=== PATIENT | female | born 1970 | race Caucasian/White ===

== ENCOUNTER 2019-11-17 16:52 | Emergency (ER) | payer OTHER, SELFPAY ==
[2019-11-17 17:05] VITALS: BP 123/64; PULSE 88; RESP 20; TEMP 37.1; O2SAT 98; BMI 42.9
[2019-11-17 17:52] LABS: Bacteria Urine None Seen
[2019-11-17 18:14] LABS: Amorphous Sediment Urine 1+; RBC Urine 0-1/HPF (0-5/HPF); Squamous Epithelial Cell Urine 1-5 /HPF (0-5/HPF); WBC Urine 1-5/HPF (0-5/HPF)
[2019-11-17 18:15] LABS: Culture Indicated Urine Cult Not Indicated; Mucus Urine 1+ (Negative)
[2019-11-17 18:32] LABS: Add Manual Diff / Slide Review NO; Basophils Absolute Auto 100 /uL (0-100); Basophils Percent Auto 0.7 % (0-2); Eosinophils Absolute Auto 100 /uL (0-450); Eosinophils Percent Auto 1.2 % (2-4); Hematocrit 40.8 % (36-46); Hemoglobin 13.5 g/dL (12.0-16.0); Lymphocytes Absolute Auto 1600 /uL (1100-4500); Lymphocytes Percent Auto 20.5 % (25-40); Mean Corpuscular HGB Conc 33.1 % (30-36); Mean Corpuscular Hemoglobin 26.6 PG (26-34); Mean Corpuscular Volume 80.5 fL (80-100); Monocytes Absolute Auto 500 /uL (0-900); Monocytes Percent Auto 6.7 % (3-14); Neutrophils Absolute Auto 5500 /uL (1500-7000); Neutrophils Percent Auto 70.9 % (50-75); Platelet Count 250 X10^3/uL (150-400); Red Blood Cell Count 5.07 X10^6/uL (4.0-5.2); Red Cell Distribution Width 15.2 % (11.6-14.8); White Blood Cell Count 7.8 X10^3/uL (4.5-11.0)
[2019-11-17 18:47] LABS: Alanine Aminotransferase 26 IU/L (<35); Albumin 4.3 g/dL (3.5-5.0); Albumin Globulin Ratio 1.1 (1.0-2.8); Alkaline Phosphatase 70 U/L (38-126); Aspartate Aminotransferase 27 IU/L (14-36); Bilirubin Total 0.4 mg/dL (0.2-1.3); Blood Urea Nitrogen 18 mg/dL (7-17); Calcium 9.6 mg/dL (8.4-10.2); Carbon Dioxide 25 mmol/L (22-32); Chloride 104 mmol/L (98-107); Estimated Glomerular Filt Rate > 60.0 mL/min (>60); Globulin 3.9 g/dL (1.7-4.1); Glucose 118 mg/dL (70-100); HEMOLYSIS < 15 (0-50); Potassium 4.2 mmol/L (3.4-5.1); Sodium 137 mmol/L (137-145); Total Protein 8.2 g/dL (6.3-8.2)
[2019-11-17] MEDS: KETOROLAC 60 MG/2 ML VIAL IM (19:27)
[2019-11-17] MEDS: LIDOCAINE PATCH 1 EACH ADH..PATCH TOP (19:27)
--- NOTE | 2019-11-17 19:31 | PC.NURSE ---
pt medicated as per mdo
[2019-11-17] MEDS: CYCLOBENZAPRINE 10 MG PREPACK 1 BOTTLE MISC (20:35)
[2019-11-17] MEDS: KETOROLAC 10MG PREPACK 1 BOTTLE MISC (20:35)
--- NOTE | 2019-11-17 20:35 | PC.NURSE ---
Pt reports her pain is much improved, down to 8/10 from 10/10. States her pain is tolerable now.
[2019-11-17 20:43] VITALS: BP 144/90; PULSE 77; RESP 20; O2SAT 100
--- NOTE | 2019-11-17 20:46 | ED_ITS ---
HPI - Female Genitourinary <SANTHOSH Valera - Last Filed: 11/17/19 20:52> General Chief complaint: Urogenital-Female Stated complaint: back pain right side, also L wrist gout issues Time Seen by Provider: 11/17/19 19:02 Source: patient Mode of arrival: Ambulatory Limitations: no limitations History of Present Illness HPI Narrative: The patient is a 49-year-old female current smoker who presents with a chief complaint of back pain that started several days ago. 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 She is concerned about a kidney infection in came in because the nurse triage line from her insurance center. She denies any dysuria urgency or frequency. She has not taken anything for the pain, states it is constant sometimes radiating around her abdomen. She states she does not like pain medicine. She states it is not feel like a kidney stone. No fevers nausea vomiting etcetera. The patient states that she has had this happen a few months ago, then it got better on her own after she broke out in a rash. No current rashes. Related Data Home Medications Medication Instructions Recorded Confirmed diazepam 5 mg PO PRN #0 08/06/10 drospirenone-ethinyl estradiol 1 tab PO QDAY #0 08/06/10 [SAVANNAH (28)] levothyroxine [Synthroid] 75 mcg NG QDAY #0 08/06/10 OMEPRAZOLE #0 04/27/12 Previous Rx's Medication Instructions Recorded cyclobenzaprine 10 mg PO TID PRN #20 tab 11/17/19 ketorolac 10 mg PO TID PRN #10 tab 11/17/19 lidocaine 1 patch TOP DAILY #15 each 11/17/19 Allergies Allergy/AdvReac Type Severity Reaction Status Date / Time From BUSPAR Allergy Unknown Uncoded 11/17/19 17:10 From DILAUDID Allergy Unknown Uncoded 11/17/19 17:10 From XANAX Allergy Unknown Uncoded 11/17/19 17:10 MORPHINE Allergy Unknown Uncoded 11/17/19 17:10 Review of Systems <SANTHOSH Valera - Last Filed: 11/17/19 20:52> Review of Systems Narrative: GENERAL: Denies chills, fatigue, malaise, fever, sweats. HEENT: Denies sinus pain, ear pain, sore throat, difficulty swallowing, dizziness. RESPIRATORY: Denies dyspnea, cough, wheezing, hemoptysis, sputum. CARDIOVASCULAR: Denies chest pain, palpitations, orthopnea, edema, GASTROINTESTINAL: See HPI : See HPI MUSCULOSKELETAL: See HPI SKIN: Denies rash, skin lesions, or other NEUROLOGIC: Denies weakness, headache, numbness, change in speech, confusion, seizures, incoordination. PSYCHIATRIC: No concerning psychosocial issues. 12 point review of systems is negative except for those stated above Patient History <SANTHOSH Valera - Last Filed: 11/17/19 20:52> Medical History (Updated 11/17/19 @ 20:48 by SANTHOSH Valera) History of kidney stones (Acute) tobacco type: cigarettes alcohol intake frequency: 0-2 drinks per day Substance Use Type: marijuana Exam <SANTHOSH Valera - Last Filed: 11/17/19 20:52> Narrative Exam Narrative: GENERAL: This is a well-nourished, well-developed patient, appears uncomfortable HEAD: Atraumatic. Normocephalic. No temporal or scalp tenderness. EYES: Pupils equal round and reactive. Extraocular motions intact. No scleral icterus. No injection or drainage. ENT: Nose without bleeding, purulent drainage or septal hematoma. Throat without erythema, tonsillar hypertrophy or exudate. Uvula midline. Airway patent. NECK: Trachea midline. No JVD or lymphadenopathy. Supple, nontender, no meningeal signs. CARDIOVASCULAR: Regular rate and rhythm RESPIRATORY: Clear to auscultation. Breath sounds equal bilaterally. No wheezes, rales, or rhonchi. No cough. No increased respiratory effort. No accessory muscle use. GASTROINTESTINAL: Abdomen soft, non-tender, nondistended. No hepato- splenomegaly, or palpable masses. No guarding. EXTREMITIES: No clubbing, cyanosis, or edema. No joint tenderness, effusion, or edema noted. BACK: No tenderness to CT or L midline palpation. Pain to right paraspinal muscle palpation of T-spine. Neuro: Alert and oriented, stable gait, using all extremities equally. Interactive. SKIN: No rash or erythema on visible skin or back. Initial Vital Signs Initial Vital Signs: Vital Signs Temperature 98.7 F 11/17/19 17:05 Pulse Rate 88 11/17/19 17:05 Respiratory Rate 20 11/17/19 17:05 Blood Pressure 123/64 11/17/19 17:05 Pulse Oximetry 98 11/17/19 17:05 <Phu Rain DO - Last Filed: 11/18/19 05:53> Initial Vital Signs Initial Vital Signs: Vital Signs Temperature 98.7 F 11/17/19 17:05 Pulse Rate 88 11/17/19 17:05 Respiratory Rate 20 11/17/19 17:05 Blood Pressure 123/64 11/17/19 17:05 Pulse Oximetry 98 11/17/19 17:05 Course <NOAH ValeraBC - Last Filed: 11/17/19 20:52> Orders Ordered: Discontinued Medications Cyclobenzaprine HCl (Flexeril 10 Mg Prepack) 1 bottle MISC SEEINSTR ONE Stop: 11/17/19 20:14 Last Admin: 11/17/19 20:35 Dose: 1 bottle Documented by: TERESA Ketorolac Tromethamine (Toradol) 60 mg IM NOW ONE Stop: 11/17/19 19:18 Last Admin: 11/17/19 19:27 Dose: 60 mg Documented by: CLAUDIA Ketorolac Tromethamine (Toradol 10mg Prepack) 1 bottle MISC SEEINSTR ONE Stop: 11/17/19 20:14 Last Admin: 11/17/19 20:35 Dose: 1 bottle Documented by: TERESA Lidocaine (Lidoderm) 1 each TOP NOW ONE Stop: 11/17/19 19:18 Last Admin: 11/17/19 19:27 Dose: 1 each Documented by: CLAUDIA Vital Signs Vital signs: Vital Signs - 8 hr 11/17/19 17:05 11/17/19 20:43 Temperature 98.7 F Pulse Rate 88 77 Respiratory Rate 20 20 Blood Pressure 123/64 144/90 H Pulse Oximetry 98 100 <Phu Rain DO - Last Filed: 11/18/19 05:53> Orders Ordered: Discontinued Medications Cyclobenzaprine HCl (Flexeril 10 Mg Prepack) 1 bottle MISC SEEINSTR ONE Stop: 11/17/19 20:14 Last Admin: 11/17/19 20:35 Dose: 1 bottle Documented by: KWOYSKI Ketorolac Tromethamine (Toradol) 60 mg IM NOW ONE Stop: 11/17/19 19:18 Last Admin: 11/17/19 19:27 Dose: 60 mg Documented by: CLAUDIA Ketorolac Tromethamine (Toradol 10mg Prepack) 1 bottle MISC SEEINSTR ONE Stop: 11/17/19 20:14 Last Admin: 11/17/19 20:35 Dose: 1 bottle Documented by: TERESA Lidocaine (Lidoderm) 1 each TOP NOW ONE Stop: 11/17/19 19:18 Last Admin: 11/17/19 19:27 Dose: 1 each Documented by: CLAUDIA Vital Signs Vital signs: Vital Signs - 8 hr 11/17/19 17:05 11/17/19 20:43 Temperature 98.7 F Pulse Rate 88 77 Respiratory Rate 20 20 Blood Pressure 123/64 144/90 H Pulse Oximetry 98 100 MDM - Female Genitourinary <ELVIRA Valera- - Last Filed: 11/17/19 20:52> Lab Data Attestation: I reviewed the patient's lab results. Result diagrams: 11/17/19 18:08 11/17/19 18:08 Labs: Lab Results 11/17/19 11/17/19 11/17/19 Range/Units 17:30 18:08 18:08 WBC 7.8 (4.5-11.0) X10^3/uL RBC 5.07 (4.0-5.2) X10^6/uL Hgb 13.5 (12.0-16.0) g/dL Hct 40.8 (36-46) % MCV 80.5 (80-100) fL MCH 26.6 (26-34) PG MCHC 33.1 (30-36) % RDW 15.2 H (11.6-14.8) % Plt Count 250 (150-400) X10^3/uL Neut % (Auto) 70.9 (50-75) % Lymph % (Auto) 20.5 L (25-40) % [place] % (Auto) 6.7 (3-14) % Eos % (Auto) 1.2 L (2-4) % Baso % (Auto) 0.7 (0-2) % Neut # (Auto) 5500 (1324-4812) /uL Lymph # (Auto) 1600 (1831-9063) /uL [place] # (Auto) 500 (0-900) /uL Eos # (Auto) 100 (0-450) /uL Baso # (Auto) 100 (0-100) /uL Sodium 137 (137-145) mmol/L Potassium 4.2 (3.4-5.1) mmol/L Chloride 104 (98-107) mmol/L Carbon Dioxide 25 (22-32) mmol/L BUN 18 H (7-17) mg/dL Creatinine 0.82 (0.52-1.04) mg/dL Estimated GFR > 60.0 (>60) mL/min BUN/Creatinine Ratio 22.0 (6-22) Glucose 118 H (70-100) mg/dL Calcium 9.6 (8.4-10.2) mg/dL Total Bilirubin 0.4 (0.2-1.3) mg/dL AST 27 (14-36) IU/L ALT 26 (<35) IU/L Alkaline Phosphatase 70 (38-126) U/L Total Protein 8.2 (6.3-8.2) g/dL Albumin 4.3 (3.5-5.0) g/dL Globulin 3.9 (1.7-4.1) g/dL Albumin/Globulin Ratio 1.1 (1.0-2.8) Urine RBC 0-1/hpf (0-5/HPF) Urine WBC 1-5/hpf (0-5/HPF) Ur Squamous Epith Cells 1-5 /hpf (0-5/HPF) Amorphous Sediment 1+ Urine Bacteria None seen (None) Urine Mucus 1+ H (Negative) Ur Culture Indicated? Cult not indicated Urine Dip Bedside Urine Glucose Negative Bedside Urine Bilirubin - Negative Bedside Urine Ketone - Negative Urine Specific [place] 1.025 Bedside Urine Occult Blood - Negative Bedside Urine pH 6 Bedside Urine Protein +/- 15 Bedside Urine Urobilinogen - Negative Bedside Urine Nitrite - Negative Bedside Urine Leukocytes + 70 Esterase MDM Narrative Medical decision making narrative: The patient is a 49-year-old female who presents with a chief complaint of right-sided back and flank pain. Her exam is overall reassuring, she appears well and nontoxic Her labs are grossly normal, no elevated leukocytosis, normal renal function. Urine is not concerning for infection at this point in time. Patient declines imaging repeatedly, despite me discussing that I cannot rule out a stone or acute etiology at this point time. Reassuring that she does not have any hematuria. She does not have a ride home is unable to obtain 1, so we held off on muscle relaxers or narcotics at this point time. The patient felt improved after Toradol and a lidocaine patch, stating her pain was tolerable requesting to go home. I did discuss at length the importance of following up with primary care provider in the next few days as well as come back to the emergency department for any acute concerns. I discussed with her that she repeatedly declined imaging is welcome to come back to the emergency department at any point time I did give her take-home pack of Flexeril. Patient has no questions or concerns upon discharge and states understanding return precautions as well as follow-up care. <Phu Rain, DO - Last Filed: 11/18/19 05:53> Lab Data Labs: Lab Results 11/17/19 11/17/19 11/17/19 Range/Units 17:30 18:08 18:08 WBC 7.8 (4.5-11.0) X10^3/uL RBC 5.07 (4.0-5.2) X10^6/uL Hgb 13.5 (12.0-16.0) g/dL Hct 40.8 (36-46) % MCV 80.5 (80-100) fL MCH 26.6 (26-34) PG MCHC 33.1 (30-36) % RDW 15.2 H (11.6-14.8) % Plt Count 250 (150-400) X10^3/uL Neut % (Auto) 70.9 (50-75) % Lymph % (Auto) 20.5 L (25-40) % [place] % (Auto) 6.7 (3-14) % Eos % (Auto) 1.2 L (2-4) % Baso % (Auto) 0.7 (0-2) % Neut # (Auto) 5500 (2184-4532) /uL Lymph # (Auto) 1600 (0818-3614) /uL [place] # (Auto) 500 (0-900) /uL Eos # (Auto) 100 (0-450) /uL Baso # (Auto) 100 (0-100) /uL Sodium 137 (137-145) mmol/L Potassium 4.2 (3.4-5.1) mmol/L Chloride 104 (98-107) mmol/L Carbon Dioxide 25 (22-32) mmol/L BUN 18 H (7-17) mg/dL Creatinine 0.82 (0.52-1.04) mg/dL Estimated GFR > 60.0 (>60) mL/min BUN/Creatinine Ratio 22.0 (6-22) Glucose 118 H (70-100) mg/dL Calcium 9.6 (8.4-10.2) mg/dL Total Bilirubin 0.4 (0.2-1.3) mg/dL AST 27 (14-36) IU/L ALT 26 (<35) IU/L Alkaline Phosphatase 70 (38-126) U/L Total Protein 8.2 (6.3-8.2) g/dL Albumin 4.3 (3.5-5.0) g/dL Globulin 3.9 (1.7-4.1) g/dL Albumin/Globulin Ratio 1.1 (1.0-2.8) Urine RBC 0-1/hpf (0-5/HPF) Urine WBC 1-5/hpf (0-5/HPF) Ur Squamous Epith Cells 1-5 /hpf (0-5/HPF) Amorphous Sediment 1+ Urine Bacteria None seen (None) Urine Mucus 1+ H (Negative) Ur Culture Indicated? Cult not indicated Urine Dip Bedside Urine Glucose Negative Bedside Urine Bilirubin - Negative Bedside Urine Ketone - Negative Urine Specific [place] 1.025 Bedside Urine Occult Blood - Negative Bedside Urine pH 6 Bedside Urine Protein +/- 15 Bedside Urine Urobilinogen - Negative Bedside Urine Nitrite - Negative Bedside Urine Leukocytes + 70 Esterase Discharge Plan Departure Patient Disposition: Home Clinical Impression: Back pain Qualifiers: Back pain location: thoracic back pain Chronicity: acute Back pain laterality: right Qualified Code(s): M54.6 - Pain in thoracic spine Discharge Date/Time: 11/17/19 20:44 Instructions: DI for Back Spasm, DI for Thoracic Back Pain, DI for Muscle Spasm Activity Restrictions/Additional Instructions: Thank you for trusting us with your care today. As discussed, I sent 3 prescriptions to [facility] in [place] I have given you a prescription of Toradol. This is an NSAID. Do not combine it with other NSAIDs such as Aleve or ibuprofen. I suggest taking it with some food, as it can irritate your stomach. As discussed, be aware that the cyclobenzaprine can be sedating. Do not take it with anything sedating. Please follow-up with primary care provider in the next few days. Please come back to emergency department for any acute concerns. Prescriptions: New cyclobenzaprine 10 mg tablet 10 mg PO TID PRN (Reason: muscle spasm) Qty: 20 RF: 0 ketorolac 10 mg tablet 10 mg PO TID PRN (Reason: pain) Qty: 10 RF: 0 lidocaine 5 % adhesive patch,medicated 1 patch TOP DAILY Qty: 15 RF: 0 No Action diazepam 5 MG tablet 5 mg PO PRN Qty: 0 RF: 0 drospirenone-ethinyl estradiol [SAVANNAH (28)] 0.01 MG/3 MG tablet 1 tab PO QDAY Qty: 0 RF: 0 levothyroxine [Synthroid] 75 MCG tablet 75 mcg NG QDAY Qty: 0 RF: 0 OMEPRAZOLE Qty: 0 RF: 0 Referrals: Irlanda Abad PA-C [Non-Staff] - <Phu Rain DO - Last Filed: 11/18/19 05:53> Cosign ED Attending Cosignature Attestation: I was immediately available in the department for consultation. This documentation has been reviewed and I agree with assessment and plan. Supervised by Phu Rain DO
== END 2019-11-17 20:44 | disposition home or self-care (01) ==
PROVIDERS: Emergency Medicine; Emergency Provider Nurse Practitioner Family; Family Provider Family Medicine
DX: M54.6 Pain in thoracic spine (principal); Z87.442 Personal history of urinary calculi
CPT/HCPCS: 36415; 80053; 81003; 81015; 85025; 96372; 99283; J1885

== ENCOUNTER 2019-11-20 11:31 | Emergency (ER) | payer OTHER, SELFPAY ==
[2019-11-20 11:35] VITALS: BP 159/83; PULSE 77; RESP 14; TEMP 36.7; O2SAT 97
[2019-11-20 12:04] LABS: Appearance Urine UA CLEAR; Bilirubin Urine UA NEGATIVE (NEGATIVE); Color Urine UA YELLOW; Glucose Urine UA NEGATIVE (Negative); Ketones Urine UA NEGATIVE (NEGATIVE); Leukocyte Esterase Urine UA NEGATIVE (NEGATIVE); Nitrite Urine UA NEGATIVE (Negative); Occult Blood Urine UA NEGATIVE (Negative); Protein Urine UA NEGATIVE (Negative); Urobilinogen Urine UA 0.2 E.U./dL (0.2)
--- NOTE | 2019-11-20 12:05 | ED_ITS ---
HPI - Back Pain/Injury <Judy Wilson, TERRITORY REPRESENTATIVE - Last Filed: 11/20/19 20:09> General Chief Complaint: Back Pain/Injury Stated Complaint: back pain Time Seen by Provider: 11/20/19 11:47 Source: patient Limitations: no limitations History of Present Illness HPI Narrative: 49yo female with a history of back spasms, presents emergency department for re-evaluation of her right-sided back pain. She was seen on 11/17/2019 and evaluated for a muscle spasm. Patient was sent home with ketorolac, lidocaine patches, and cyclobenzaprine which have been helping. However, she states the pain is significant and has continued to worsen. She reports the pain started on her right side/flank area and radiates to the abdomen occasionally. She states it is worse with movement, palpation to the area, and transition from lying to sitting. Patient denies any trauma to the area, she did states that she was moving her mother around over the past week which may have contributed. She denies any pain with urination, high fevers, chest pain, shortness of breath, dizziness, syncope, nausea, vomiting, or other concerns. She states this morning at 6:00 a.m. she took a diazepam to help with muscle spasms, reports this helped relieve some pain. Related Data Home Medications Medication Instructions Recorded Confirmed diazepam 5 mg PO PRN #0 08/06/10 drospirenone-ethinyl estradiol 1 tab PO QDAY #0 08/06/10 [SAVANNAH (28)] levothyroxine [Synthroid] 75 mcg NG QDAY #0 08/06/10 OMEPRAZOLE #0 04/27/12 Previous Rx's Medication Instructions Recorded cyclobenzaprine 10 mg PO TID PRN #20 tab 11/17/19 ketorolac 10 mg PO TID PRN #10 tab 11/17/19 lidocaine 1 patch TOP DAILY #15 each 11/17/19 oxycodone-acetaminophen [Percocet] 1 tab PO Q8H PRN #7 tab 11/20/19 prednisone 20 mg PO DAILY 5 Days #5 tab 11/20/19 Allergies Allergy/AdvReac Type Severity Reaction Status Date / Time alprazolam [From Xanax] Allergy Unknown Verified 11/20/19 11:41 buspirone [From BuSpar] Allergy Unknown Verified 11/20/19 11:41 hydromorphone [From Dilaudid] Allergy Unknown Verified 11/20/19 11:41 morphine Allergy Unknown Verified 11/20/19 11:41 Review of Systems <LEENA Garcia - Last Filed: 11/20/19 20:09> Review of Systems Narrative: REVIEW OF SYSTEMS: GENERAL: Denies fever. HENT: No head trauma. EYES: No vision changes. CARDIOVASCULAR: No chest pain. RESPIRATORY: No cough. GASTROINTESTINAL: Denies nausea vomiting. GENITOURINARY: Reports right-sided back/flank pain, see HPI. MUSCULOSKELETAL: No pain, weakness, or trauma. INTEGUMENTARY: No rash, lesions, or pruritus. NEURO: No numbness, tingling. Most saddle paresthesias or loss of bowel or bladder control. PSYCH: No behavior or mood changes. Patient History <LEENA Garcia - Last Filed: 11/20/19 20:09> Medical History History of kidney stones (Acute) Social History Smoking Status: Current some day smoker Smoking Status: Current some day smoker tobacco type: cigarettes alcohol intake frequency: 0-2 drinks per day Substance Use Type: marijuana Exam <LEENA Garcia - Last Filed: 11/20/19 20:09> Initial Vital Signs Initial Vital Signs: Vital Signs Temperature 98.0 F 11/20/19 11:35 Pulse Rate 77 11/20/19 11:35 Respiratory Rate 14 11/20/19 11:35 Blood Pressure 159/83 H 11/20/19 11:35 Pulse Oximetry 97 11/20/19 11:35 PHYSICAL EXAMINATION: GENERAL: Well groomed, alert, and cooperative. Answers questions promptly and appropriately. Vital signs noted. HENT: Normocephalic, atraumatic. Hearing intact. Oral mucosa is pink and moist. EYES: Conjunctiva pink, sclera white, no periorbital swelling. CARDIOVASCULAR: S1 and S2 sounds normal. Regular rate and rhythm, no murmurs, clicks, or bruits. No pedal edema. RESPIRATORY: Normal respiratory rate, trachea midline, airway patent. No stridor, nasal flaring or accessory muscle use. Lungs are clear in all william without wheeze, rhonchi, or crackles. GASTROINTESTINAL: Bowel sounds normoactive. Abdomen is soft and non-tender. No organomegaly, no palpable masses. GENITALURINARY: Right flank tenderness. MUSCULOSKELETAL: Right lower thoracic/upper lumbar paraspinal vertebral muscle tenderness and mid back muscle tenderness with palpation. Increased pain with rotation to the right and transition from sitting to lying and lying to sitting. Normal gait and coordination. Equal tone and mass bilaterally. EXTREMITIES: CMS intact, no pedal edema. SKIN: Warm, dry, soft, appropriate color for ethnicity. No lesions, rashes, or wounds to visualized areas. NEURO: Alert and Oriented X 3. Good coordination. No ataxia, or sensory deficits, or cognitive issues. PSYCH: Appropriate affect and mood. <Eladio Sosa MD - Last Filed: 11/21/19 13:17> Initial Vital Signs Initial Vital Signs: Vital Signs Temperature 98.0 F 11/20/19 11:35 Pulse Rate 77 11/20/19 11:35 Respiratory Rate 14 11/20/19 11:35 Blood Pressure 159/83 H 11/20/19 11:35 Pulse Oximetry 97 11/20/19 11:35 Course <LEENA Garcia - Last Filed: 11/20/19 20:09> Course Course Narrative: Patient reports improved pain after Toradol administration. Orders Ordered: Discontinued Medications Ketorolac Tromethamine (Toradol) 30 mg IV NOW ONE Stop: 11/20/19 12:05 Last Admin: 11/20/19 12:39 Dose: 30 mg Documented by: EZEQUIEL Oxycodone/Acetaminophen (Percocet 5/325) 1 tab PO NOW ONE Stop: 11/20/19 12:55 Last Admin: 11/20/19 13:00 Dose: 1 tab Documented by: EZEQUIEL Vital Signs Vital signs: Vital Signs - 8 hr 11/20/19 13:42 Pulse Rate 79 Blood Pressure 177/77 H Pulse Oximetry 97 <Eladio Sosa MD - Last Filed: 11/21/19 13:17> Orders Ordered: Discontinued Medications Ketorolac Tromethamine (Toradol) 30 mg IV NOW ONE Stop: 11/20/19 12:05 Last Admin: 11/20/19 12:39 Dose: 30 mg Documented by: EZEQUIEL Oxycodone/Acetaminophen (Percocet 5/325) 1 tab PO NOW ONE Stop: 11/20/19 12:55 Last Admin: 11/20/19 13:00 Dose: 1 tab Documented by: EZEQUIEL Vital Signs Vital signs: Vital Signs - 8 hr 11/20/19 13:42 Pulse Rate 79 Blood Pressure 177/77 H Pulse Oximetry 97 MDM - Back Pain/Injury <LEENA Garcia - Last Filed: 11/20/19 20:09> Medical Records Attestation: I reviewed the patient's medical records. Lab Data Attestation: I reviewed the patient's lab results. Result diagrams: 11/20/19 12:35 11/20/19 12:35 Labs: Lab Results 11/20/19 11/20/19 11/20/19 Range/Units 11:50 12:35 12:35 WBC 6.5 (4.5-11.0) X10^3/uL RBC 5.06 (4.0-5.2) X10^6/uL Hgb 13.6 (12.0-16.0) g/dL Hct 40.3 (36-46) % MCV 79.6 L (80-100) fL MCH 26.8 (26-34) PG MCHC 33.7 (30-36) % RDW 15.4 H (11.6-14.8) % Plt Count 273 (150-400) X10^3/uL Neut % (Auto) 60.1 (50-75) % Lymph % (Auto) 27.3 (25-40) % [place] % (Auto) 9.4 (3-14) % Eos % (Auto) 1.9 L (2-4) % Baso % (Auto) 1.3 (0-2) % Neut # (Auto) 3900 (7222-6864) /uL Lymph # (Auto) 1800 (7447-5463) /uL [place] # (Auto) 600 (0-900) /uL Eos # (Auto) 100 (0-450) /uL Baso # (Auto) 100 (0-100) /uL Sodium 136 L (137-145) mmol/L Potassium 4.9 (3.4-5.1) mmol/L Chloride 102 (98-107) mmol/L Carbon Dioxide 28 (22-32) mmol/L BUN 25 H (7-17) mg/dL Creatinine 0.83 (0.52-1.04) mg/dL Estimated GFR > 60.0 (>60) mL/min BUN/Creatinine Ratio 30.1 H (6-22) Glucose 87 (70-100) mg/dL Calcium 10.0 (8.4-10.2) mg/dL Total Bilirubin 0.5 (0.2-1.3) mg/dL AST 31 (14-36) IU/L ALT 29 (<35) IU/L Alkaline Phosphatase 64 (38-126) U/L Total Protein 8.6 H (6.3-8.2) g/dL Albumin 4.4 (3.5-5.0) g/dL Globulin 4.2 H (1.7-4.1) g/dL Albumin/Globulin Ratio 1.0 (1.0-2.8) Urine Color Yellow Urine Appearance Clear Urine pH 6.5 (4.5-8.0) Ur Specific [place] 1.010 (1.000-1.035) Urine Protein Negative (Negative) Urine Glucose (UA) Negative (Negative) g/dL Urine Ketones Negative (NEGATIVE) Urine Occult Blood Negative (Negative) Urine Nitrate Negative (Negative) Urine Bilirubin Negative (NEGATIVE) Urine Urobilinogen 0.2 (0.2) E.U./dL Ur Leukocyte Esterase Negative (NEGATIVE) Urine RBC 0-1/hpf (0-5/HPF) Urine WBC 0-1/hpf (0-5/HPF) Ur Squamous Epith Cells 1-5 /hpf (0-5/HPF) Urine Bacteria Few (2-10) H (None) Ur Culture Indicated? Cult not indicated Imaging Data CT KUB: Radiologist's Impression: [address] [address] [address] Scan Report Signed Patient: Shonna LMR#: [id number] : 1970Acct:[id number] Age/Sex: 49 / FDate of Service: 11/20/19 Loc: ED Accession Number: [id number] Procedure: CT kidney ureter bladder (KUB) Ordering Provider: Judy Wilson PROCEDURE: CT KIDNEY URETER BLADDER (KUB) INDICATIONS: Right Flank pain TECHNIQUE: Noncontrast 5 mm thick sections acquired from the diaphragms to the symphysis. 5 mm thick coronal and sagittal reformats were then performed. For radiation dose reduction, the following was used: automated exposure control, adjustment of mA and/or kV according to patient size. COMPARISON: None. FINDINGS: Image quality: Excellent. Lung bases: Lung bases are clear. Heart size is normal. Urinary system: Both kidneys are normal in size. No kidney stones. No hydronephrosis or perinephric fat stranding. Both ureters appear non-dilated throughout their expected courses. Bladder wall thickness is normal; no calcified bladder stones. Retroaortic renal vein is incidentally noted. Other solid organs: Liver is mildly enlarged with steatosis. Gallbladder has been removed . Pancreas is normal in contours. Spleen is normal in size. No ad renal nodules. Peritoneum and bowel: Unenhanced bowel loops demonstrate normal wall thickness and caliber. No free fluid or air. Colonic diverticular present. No inflammatory change. Nodes and vessels: No retroperitoneal or mesenteric adenopathy by size criteria. Aorta and inferior vena cava are normal in caliber. Abdominal wall: Fat containing umbilical hernia is present. Pelvis: No free pelvic fluid. No inguinal hernias or adenopathy. Bones: No suspicious bony lesions. No vertebral body compression fractures. IMPRESSION: 1. No nephroureterolithiasis. No visualized cause of right flank pain. 2. Diverticulosis. Dictated by: Gely Charles M.D. on 11/20/2019 at 12:37 Approved by: Gely Charles M.D. on 11/20/2019 at 12:50 MDM Narrative Medical decision making narrative: 49-year-old female presents emergency department for re-evaluation of her right back pain. According to last visit patient reported pain started after helping her mother move. Current pain medic ation are not helping and patient reports continuing pain. Due to right-sided flank pain history of kidney stones, there was increased concern for renal calculi. KUB was ordered which was negative for renal calculi, compression fractures, pelvic abnormalities, or large organ abnormalities. No rash to indicate shingles. Given patient's pain and radiation of pain, I suspect this may be a pinched ne rve with muscle spasms. Patient was given a course of steroid and pain medication to help with symptoms. She was encouraged to follow up with her primary care provider as scheduled this week for further evaluation and possible testing if indicated. Less concern for cauda equina given lack of concerning symptoms such as saddle paresthesias or loss of bowel or bladder control. However, patient was given strict return precautions for new or worsening symptoms. She agreed to plan of care verbalized understanding. Less concern for infection given lack of normal laboratory values, patient is afebrile and not tachycardic. <Eladio Sosa MD - Last Filed: 11/21/19 13:17> Lab Data Labs: Lab Results 11/20/19 11/20/19 11/20/19 Range/Units 11:50 12:35 12:35 WBC 6.5 (4.5-11.0) X10^3/uL RBC 5.06 (4.0-5.2) X10^6/uL Hgb 13.6 (12.0-16.0) g/dL Hct 40.3 (36-46) % MCV 79.6 L (80-100) fL MCH 26.8 (26-34) PG MCHC 33.7 (30-36) % RDW 15.4 H (11.6-14.8) % Plt Count 273 (150-400) X10^3/uL Neut % (Auto) 60.1 (50-75) % Lymph % (Auto) 27.3 (25-40) % [place] % (Auto) 9.4 (3-14) % Eos % (Auto) 1.9 L (2-4) % Baso % (Auto) 1.3 (0-2) % Neut # (Auto) 3900 (7244-8215) /uL Lymph # (Auto) 1800 (0645-8432) /uL [place] # (Auto) 600 (0-900) /uL Eos # (Auto) 100 (0-450) /uL Baso # (Auto) 100 (0-100) /uL Sodium 136 L (137-145) mmol/L Potassium 4.9 (3.4-5.1) mmol/L Chloride 102 (98-107) mmol/L Carbon Dioxide 28 (22-32) mmol/L BUN 25 H (7-17) mg/dL Creatinine 0.83 (0.52-1.04) mg/dL Estimated GFR > 60.0 (>60) mL/min BUN/Creatinine Ratio 30.1 H (6-22) Glucose 87 (70-100) mg/dL Calcium 10.0 (8.4-10.2) mg/dL Total Bilirubin 0.5 (0.2-1.3) mg/dL AST 31 (14-36) IU/L ALT 29 (<35) IU/L Alkaline Phosphatase 64 (38-126) U/L Total Protein 8.6 H (6.3-8.2) g/dL Albumin 4.4 (3.5-5.0) g/dL Globulin 4.2 H (1.7-4.1) g/dL Albumin/Globulin Ratio 1.0 (1.0-2.8) Urine Color Yellow Urine Appearance Clear Urine pH 6.5 (4.5-8.0) Ur Specific [place] 1.010 (1.000-1.035) Urine Protein Negative (Negative) Urine Glucose (UA) Negative (Negative) g/dL Urine Ketones Negative (NEGATIVE) Urine Occult Blood Negative (Negative) Urine Nitrate Negative (Negative) Urine Bilirubin Negative (NEGATIVE) Urine Urobilinogen 0.2 (0.2) E.U./dL Ur Leukocyte Esterase Negative (NEGATIVE) Urine RBC 0-1/hpf (0-5/HPF) Urine WBC 0-1/hpf (0-5/HPF) Ur Squamous Epith Cells 1-5 /hpf (0-5/HPF) Urine Bacteria Few (2-10) H (None) Ur Culture Indicated? Cult not indicated Discharge Plan Departure Patient Disposition: Home Clinical Impression: Back pain Qualifiers: Back pain location: thoracic back pain Chronicity: acute Back pain laterality: right Qualified Code(s): M54.6 - Pain in thoracic spine Discharge Date/Time: 11/20/19 13:52 Instructions: DI for Back Spasm Activity Restrictions/Additional Instructions: Thank you for entrusting me with your care today. As discussed, your CT, urinalysis, and laboratory work are non-remarkable. I suspect your pain is most likely caused by if pinched nerve and spasms. I prescribed you prednisone, this will help decrease inflammation. Additionally, I prescribed you Percocet. You have been prescribed a narcotic medication, this medication can make you drowsy. Do not drive while using this medication or perform activities that require mental alertness. These medications can also make you constipated, please use [id number] docusate sodium as needed for constipation. [facility]. Please follow-up with your primary care provider in the next week as scheduled. Return to the emergency department for any new or worsening symptoms such as loss of bowel or bladder control, numbness in your pelvis, high fevers, or any other concerns. Prescriptions: New prednisone 20 mg tablet 20 mg PO DAILY 5 Days Qty: 5 RF: 0 oxycodone-acetaminophen [Percocet] 5-325 mg tablet 1 tab PO Q8H PRN (Reason: pain) Qty: 7 RF: 0 No Action diazepam 5 MG tablet 5 mg PO PRN Qty: 0 RF: 0 drospirenone-ethinyl estradiol [SAVANNAH (28)] 0.01 MG/3 MG tablet 1 tab PO QDAY Qty: 0 RF: 0 levothyroxine [Synthroid] 75 MCG tablet 75 mcg NG QDAY Qty: 0 RF: 0 OMEPRAZOLE Qty: 0 RF: 0 cyclobenzaprine 10 mg tablet 10 mg PO TID PRN (Reason: muscle spasm) Qty: 20 RF: 0 ketorolac 10 mg tablet 10 mg PO TID PRN (Reason: pain) Qty: 10 RF: 0 lidocaine 5 % adhesive patch,medicated 1 patch TOP DAILY Qty: 15 RF: 0 <Eladio Sosa MD - Last Filed: 11/21/19 13:17> [facility] ED Attending [place] [facility] Attestation: I was immediately available in the department for consultation. This documentation has been reviewed and I agree with assessment and plan. Supervised by Eladio Sosa MD
[2019-11-20 12:15] LABS: Bacteria Urine Few (2-10); Culture Indicated Urine Cult Not Indicated; RBC Urine 0-1/HPF (0-5/HPF); Squamous Epithelial Cell Urine 1-5 /HPF (0-5/HPF); WBC Urine 0-1/HPF (0-5/HPF); pH Urine UA 6.5 (4.5-8.0)
[2019-11-20] MEDS: ONDANSETRON 4 MG/2 ML INJ (12:39)
[2019-11-20] MEDS: KETOROLAC 60 MG/2 ML VIAL 30 MG IV (12:39)
[2019-11-20 12:46] LABS: Add Manual Diff / Slide Review NO; Basophils Absolute Auto 100 /uL (0-100); Basophils Percent Auto 1.3 % (0-2); Eosinophils Absolute Auto 100 /uL (0-450); Eosinophils Percent Auto 1.9 % (2-4); Hematocrit 40.3 % (36-46); Hemoglobin 13.6 g/dL (12.0-16.0); Lymphocytes Absolute Auto 1800 /uL (1100-4500); Lymphocytes Percent Auto 27.3 % (25-40); Mean Corpuscular HGB Conc 33.7 % (30-36); Mean Corpuscular Hemoglobin 26.8 PG (26-34); Mean Corpuscular Volume 79.6 fL (80-100); Monocytes Absolute Auto 600 /uL (0-900); Monocytes Percent Auto 9.4 % (3-14); Neutrophils Absolute Auto 3900 /uL (1500-7000); Neutrophils Percent Auto 60.1 % (50-75); Platelet Count 273 X10^3/uL (150-400); Red Blood Cell Count 5.06 X10^6/uL (4.0-5.2); Red Cell Distribution Width 15.4 % (11.6-14.8); White Blood Cell Count 6.5 X10^3/uL (4.5-11.0)
[2019-11-20 12:58] LABS: Alanine Aminotransferase 29 IU/L (<35); Albumin 4.4 g/dL (3.5-5.0); Alkaline Phosphatase 64 U/L (38-126); Aspartate Aminotransferase 31 IU/L (14-36); BUN Creatinine Ratio 30.1 (6-22); Bilirubin Total 0.5 mg/dL (0.2-1.3); Blood Urea Nitrogen 25 mg/dL (7-17); Carbon Dioxide 28 mmol/L (22-32); Chloride 102 mmol/L (98-107); Estimated Glomerular Filt Rate > 60.0 mL/min (>60); Globulin 4.2 g/dL (1.7-4.1); Glucose 87 mg/dL (70-100); HEMOLYSIS < 15 (0-50); Potassium 4.9 mmol/L (3.4-5.1); Sodium 136 mmol/L (137-145); Total Protein 8.6 g/dL (6.3-8.2)
[2019-11-20] MEDS: OXYCODONE/ACETAMINOPHEN 5/325 TABLET 1 TAB PO (13:00)
[2019-11-20 13:42] VITALS: BP 177/77; PULSE 79; O2SAT 97
== END 2019-11-20 13:52 | disposition home or self-care (01) ==
PROVIDERS: Emergency Medicine; Emergency Provider Nurse Practitioner; Family Provider Family Medicine
DX: M54.6 Pain in thoracic spine (principal); M62.830 Muscle spasm of back; Z87.442 Personal history of urinary calculi
CPT/HCPCS: 36415; 74176; 80053; 81001; 85025; 96374; 96375; 99284; J1885; J2405

== ENCOUNTER → 2023-03-01 12:38 | Outpatient (CLI) | payer OTHER, SELFPAY ==
--- NOTE | 2023-03-01 | DI.MRI.S_ITS ---
BREAST MRI OF BOTH BREASTS: 03/01/2023 CLINICAL: Strong family history. PROCEDURE: MR BREAST BI WO/W CON INDICATIONS: STRONG FAMILY HX TECHNIQUE: The patient was placed prone in a dedicated breast imaging coil. Precontrast axial STIR and 3D FLASH without fat saturation sequences were obtained. Both before and after bolus injection of contrast, sequential 1-minute axial 3D FLASH with fat saturation sequences for 3 time points, with subtraction images and maximum intensity projections (MIP's) generated. Delayed sagittal FLASH images with fat saturation were also obtained. Computer-aided detection, including computer algorithm analysis of MRI image data for lesion detection and characterization, pharmacokinetic analysis, with further physician review for interpretation, was performed. COMPARISON: Bilateral screening mammogram dated 01/17/2023, 03/07/2020, 01/19/2018 FINDINGS: Image quality: Excellent. There is minimal background parenchymal enhancement. Right breast: An intramammary lymph node is noted and appears similar to the prior mammogram examinations. No suspicious enhancement or mass lesions. Left breast: No suspicious enhancement or mass lesions. Miscellaneous: No axillary adenopathy or intramammary adenopathy. Limited visualization of the mediastinum and the upper abdomen are unremarkable. IMPRESSION: NEGATIVE Negative breast MRI. Return to annual mammogram screening schedule is recommended. Future imaging is recommended as follows: 01/18/2024 screening mammogram. Electronically Signed By: Jaida Rowe M.D. lk/:03/10/2023 08:13:17 ACR BI-RADS Category 1: Negative [id number]
== END ==
PROVIDERS: Family Provider Family Medicine; PCP Physician Assistant Medical; Referring Provider Physician Assistant Medical; Visit Provider Physician Assistant Medical
DX: Z12.39 Encounter for other screening for malignant neoplasm of breast (principal); Z80.3 Family history of malignant neoplasm of breast
CPT/HCPCS: 77049; A9579